=== PATIENT | male | born 1975 | race American Indian/Alaskan Native ===

== ENCOUNTER 2020-05-17 22:53 | Emergency (ER) | payer SELFPAY ==
[2020-05-18] MEDS ORDERED: SODIUM CHLORIDE 0.9% 1000 ML 1,000 ML IV ONE (02:11)
[2020-05-18] MEDS ORDERED: KETOROLAC 30 MG/1 ML INJ IV ONE (02:11)
[2020-05-18] MEDS ORDERED: CLINDAMYCIN 300 MG/50 mL 300 MG/50 ML BAG IV ONE (02:11)
--- NOTE | 2020-05-18 02:15 | Emergency Department Report ---
<JAMI GERBER - Last Filed: 05/18/20 04:22> ED General Adult HPI - General Chief complaint: Sore Throat Stated complaint: BODY ACHES, SORE THOAT, Time Seen by Provider: 05/18/20 02:10 - Related Data Previous Rx's Medication Instructions Recorded Last Taken Type Acetaminophen/Codeine [Tylenol 1 tab PO Q6H PRN #15 tab 05/18/20 Unknown Rx /Codeine # 3 tab] Clindamycin [Clindamycin CAP] 300 mg PO Q8H 10 Days #30 cap 05/18/20 Unknown Rx Ibuprofen [Motrin 800 MG tab] 800 mg PO Q8HR PRN #30 tablet 05/18/20 Unknown Rx predniSONE [Deltasone] 40 mg PO QDAY #10 tab 05/18/20 Unknown Rx Allergies Allergy/AdvReac Type Severity Reaction Status Date / Time No Known Allergies Allergy Unverified 05/18/20 00:43 ED Past Medical Hx - Medications Home Medications: Home Medications Medication Instructions Recorded Confirmed Last Taken Type Acetaminophen/Codeine [Tylenol 1 tab PO Q6H PRN #15 tab 05/18/20 Unknown Rx /Codeine # 3 tab] Clindamycin [Clindamycin CAP] 300 mg PO Q8H 10 Days #30 cap 05/18/20 Unknown Rx Ibuprofen [Motrin 800 MG tab] 800 mg PO Q8HR PRN #30 tablet 05/18/20 Unknown Rx predniSONE [Deltasone] 40 mg PO QDAY #10 tab 05/18/20 Unknown Rx ED Medical Decision Making - Lab Data Result diagrams: 05/18/20 02:24 05/18/20 02:24 - Medical Decision Making I evaluated this patient alongside my colleague. Patient has exudative pharyngitis on exam. On exam edematous tonsils symmetric in size with erythema and exudate. Suspect bacterial infection considering leukocytosis. Without uvular deviation asymmetry or soft palate involvement, do not suspect peritonsillar abscess. I agree with p.o. clindamycin. Patient stable for home. Normal neck size. No submandibular swelling. ED Disposition Clinical Impression: Pharyngitis Disposition: DC- TO HOME OR SELFCARE Condition: Stable Instructions: Pharyngitis (ED) Additional Instructions: Please complete antibiotics and prednisone as prescribed. Take pain medication as needed. Increase your water intake. And follow-up with a primary care provider or ear nose and throat provider. Prescriptions: Clindamycin [Clindamycin CAP] 300 mg PO Q8H 10 Days #30 cap predniSONE [Deltasone] 40 mg PO QDAY #10 tab Ibuprofen [Motrin 800 MG tab] 800 mg PO Q8HR PRN #30 tablet PRN Reason: Pain , Severe (7-10) Acetaminophen/Codeine [Tylenol /Codeine # 3 tab] 1 tab PO Q6H PRN #15 tab PRN Reason: Pain , Severe (7-10) Referrals: PRIMARY CARE, [Primary Care Provider] - 3-[facility] - 3-5 Days [facility] [Provider Group] - 3-5 Days Forms: Work/School Release Form(ED) <MORGAN BARBER - Last Filed: 05/19/20 01:52> ED General Adult HPI - General Source: patient Mode of arrival: Ambulatory Limitations: No Limitations - History of Present Illness Initial comments: 44-year-old -[place] male presents to the emergency room for 2-day hi story of a sore throat body aches difficulty swallowing fever chills and inability to swallow and take p.o. Patient states that this started about 2-1/2 days ago. Patient reports he is tried taking [id number] cold medication without any resolution. Patient denies any past medical history currently takes no medications on a daily basis and has no known drug allergies. Onset/Timin -: days(s) Location: chest Severity scale (0 -10): 10 Quality: burning, stabbing, sharp Consistency: constant Improves with: none Worsens with: other (Swallowing) Associated Symptoms: chest pain, diaphoresis, fever/chills Treatments Prior to Arrival: other (OTC cold medication) ED Review of Systems ROS: Stated complaint: BODY ACHES, SORE THOAT, Other details as noted in HPI Comment: All other systems reviewed and negative Constitutional: chills, fever ENT: throat pain Respiratory: cough, shortness of breath Cardiovascular: chest pain ED Past Medical Hx - Past Medical History Previous Medical History?: No - Surgical History Past Surgical History?: No - Social History Smoking Status: Current Every Day Smoker Substance Use Type: Marijuana ED Physical Exam - General Limitations: No Limitations General appearance: alert, in distress - Head Head exam: Present: atraumatic, normocephalic - Eye Eye exam: Present: normal appearance - Expanded ENT Exam Expanded Mouth exam: Present: muffled voice. Absent: drooling, trismus, tongue normal, tongue elevation Throat exam: Positive: tonsillar erythema, tonsillomegaly, tonsillar exudate, other (Uvula is midline no deviation of either tonsil). Negative: R peritonsillar mass, L peritonsillar mass - Neck Neck exam: Present: tenderness, full ROM, lymphadenopathy - Respiratory Respiratory exam: Present: normal lung sounds bilaterally. Absent: respiratory distress - Cardiovascular Cardiovascular Exam: Present: tachycardia - GI/Abdominal GI/Abdominal exam: Present: soft, normal bowel sounds - Neurological Exam Neurological exam: Present: alert, oriented X3, normal gait - Psychiatric Psychiatric exam: Present: normal affect, normal mood - Skin Skin exam: Present: warm, dry, intact, normal color. Absent: rash ED Course Vital Signs 05/18/20 05/18/20 00:36 04:58 Temperature 99.9 F H 98.9 F Pulse Rate 100 H 88 Respiratory 18 18 Rate Blood Pressure 154/106 Blood Pressure 145/90 [Left] O2 Sat by Pulse 95 100 Oximetry ED Medical Decision Making - Lab Data Result diagrams: 05/18/20 02:24 05/18/20 02:24 - Radiology Data Radiology results: report reviewed Print Report Referring Physician:MORGAN BARBERPatient Name:JJ SMITHPatient ID:[id number] of :[id number]:MaleAccession:[id number] Date:[id number] Status:Finalized Findings [facility] [address] [place] [address] XRay Report Signed Patient: JJ SMITH MR#: [id number] : 1975 Acct:[id number] Age/Sex: 44 / M ADM Date: 05/17/20 Loc: ED Attending Dr: Ordering Physician: BRODIE WEST Date of Service: 05/18/20 Procedure(s): XR chest 1V ap Accession Number(s): [id number] cc: BRODIE WEST Fluoro Time In Minutes: CHEST 1 VIEW, 05/18/2020 2:52 AM CLINICAL INFORMATION/INDICATION: Chest pain COMPARISON: None FINDINGS: SUPPORT DEVICES: None. HEART: The cardiac silhouette is normal in size. LUNGS/PLEURA: The lungs are clear of focal airspace disease or significant pleural effusion. ADDITIONAL FINDINGS: No additional acute findings. IMPRESSION: 1. No evidence of acute cardiopulmonary process. Signer Name: Yi Esparza MD Signed: 05/18/2020 2:56 AM Workstation Name: [id number] Transcribed By: EB Dictated By: Yi Esparza MD Electronically Authenticated By: Yi Esparza MD Signed Date/Time: 05/18/20255 DD/ 4 Critical care attestation.: If time is entered above; I have spent that time in minutes in the direct care of this critically ill patient, excluding procedure time. ED Disposition Is pt being admited?: No Does the pt Need Aspirin: No
[2020-05-18] MEDS ORDERED: MORPHINE 4 MG/1 ML INJ IV ONE (02:50)
[2020-05-18] MEDS ORDERED: MORPHINE 4 MG/1 ML INJ ONE (02:51)
--- NOTE | 2020-05-18 03:00 | XRay Report ---
CHEST 1 VIEW, 05/18/2020 2:52 AM CLINICAL INFORMATION/INDICATION: Chest pain COMPARISON: None FINDINGS: SUPPORT DEVICES: None. HEART: The cardiac silhouette is normal in size. LUNGS/PLEURA: The lungs are clear of focal airspace disease or significant pleural effusion. ADDITIONAL FINDINGS: No additional acute findings. IMPRESSION: 1. No evidence of acute cardiopulmonary process. Signer Name: Yi Esparza MD Signed: 05/18/2020 2:56 AM Workstation Name: [id number]
[2020-05-18] MEDS ORDERED: dexAMETHasone 10 MG in SODIUM CHLORIDE 0.9% 50 ML IV ONE (03:11)
[2020-05-18 03:16] LABS: Hematocrit 45.3 % (35.5-45.6); Hemoglobin 15.4 gm/dl (11.8-15.2); Mean Corpuscular HGB Conc 34 % (32-34); Mean Corpuscular Volume 86 fl (84-94); Platelet Count 241 K/mm3 (140-440); Red Blood Count 5.29 M/mm3 (3.65-5.03); Red Cell Distribution Width 14.6 % (13.2-15.2)
[2020-05-18 03:43] LABS: Alanine Aminotransferase 29 units/L (7-56); Albumin 4.4 g/dL (3.9-5); BUN/Creatinine Ratio 5; Blood Urea Nitrogen 5 mg/dL (9-20); Calcium 9.7 mg/dL (8.4-10.2); Hemolysis Index 21
[2020-05-18 04:59] VITALS: BP 145/90
[2020-05-18 05:34] LABS: Anisocytosis 1+; Basophils % (Manual) 0 % (0.0-1.8); Eosinophils % (Manual) 0.5 % (0.0-4.3); Platelet Estimate Consistent w Auto; Total Cells Counted 200
== END 2020-05-18 04:57 | disposition home or self-care (01) ==
LOC: ED 22:53
DX: J02.9 Acute pharyngitis, unspecified (principal); Z79.899 Other long term (current) drug therapy
CPT/HCPCS: 36415; 71045; 80053; 85007; 85025; 93005; 96361; 96365; 96368; 96375; 99284; J1100; J1885; J2270; J7030